=== PATIENT | female | born 1975 | race Caucasian/White ===

== ENCOUNTER 2018-07-15 11:04 | Emergency (ER) | payer OTHER ==
[2018-07-15 11:30] LABS: APPEARANCE,URINE Cloudy (CLEAR); BILIRUBIN,URINE Negative (NEGATIVE); COLOR,URINE Dark Yellow (YELLOW); GLUCOSE, URINE (UA) Negative (NEGATIVE); KETONES,URINE Trace mg/dL (NEGATIVE); LEUKOCYTE ESTERASE ,URINE Small (NEGATIVE); NITRATE,URINE Negative (NEGATIVE); OCCULT BLOOD,URINE Large (NEGATIVE); PROTEIN,URINE Trace (NEGATIVE)
[2018-07-15 11:34] LABS: HCG,QUAL RESULT NEGATIVE (NEGATIVE)
[2018-07-15] MEDS ORDERED: DEXAMETHASONE SOD PHOSPHATE 10MG/ML 1ML VIAL ONE (11:41)
[2018-07-15] MEDS ORDERED: KETOROLAC TROMETHAMINE 30MG/ML ONE (11:41)
[2018-07-15 11:45] LABS: BACTERIA,URINE Moderate /HPF (None Seen); RBC,URINE 0-1 /HPF (0-1); SQUAMOUS EPITHELIAL CELL,UR Few /HPF (0-2)
[2018-07-15] MEDS ORDERED: CYCLOBENZAPRINE HCL 10 MG TABLET ONE (11:45)
== END 2018-07-15 11:56 | disposition home or self-care (01) ==
LOC: EDH 11:04
DX: M54.40 Lumbago with sciatica, unspecified side (principal); G89.29 Other chronic pain; Z90.49 Acquired absence of other specified parts of digestive tract; Z98.890 Other specified postprocedural states; X58.XXXA Exposure to other specified factors, initial encounter; Y93.89 Activity, other specified; Y92.69 Other specified industrial and construction area as the place of occurrence of the external cause; Y99.8 Other external cause status
CPT/HCPCS: 81001; 81025; 96372 ×2; 99283; J1100; J1885

== ENCOUNTER 2024-08-08 12:19 | Emergency (ER) | payer SELFPAY ==
[~2024-08-08] VITALS: Ht 160 cm; Wt 87.1 kg
[2024-08-08 13:16] LABS: BASOPHILS # (AUTO) 0.04 K/uL (0.00-0.20); BASOPHILS % (AUTO) 0.3 % (0.0-5.0); HEMATOCRIT 43.8 % (36-48); IMMATURE GRANULOCYTE ABSOLUTE 0.07 K/uL (0-1); LYMPHOCYTES # (AUTO) 0.2 K/uL (1.0-4.8); LYMPHOCYTES % (AUTO) 1.5 % (21.0-51.0); MEAN CORPUSCULAR HEMOGLOBIN 19.7 pg (27.0-33.0); MEAN CORPUSCULAR HGB CONC 27.9 g/dL (32.0-36.0); MEAN CORPUSCULAR VOLUME 70.6 fL (79-99); MONOCYTES # (AUTO) 0.4 K/uL (0.1-1.0); MONOCYTES % (AUTO) 2.7 % (3.0-13.0); NEUTROPHILS # (AUTO) 12.9 K/uL (1.8-7.7); PLATELET COUNT (AUTO) 336 K/uL (130-400); WHITE BLOOD COUNT (AUTO) 13.6 K/uL (4.8-10.8)
[2024-08-08 13:22] LABS: CREATININE 0.5 mg/dL (0.5-1.0); POTASSIUM 3.7 mmol/L (3.5-5.1)
[2024-08-08 13:26] LABS: ALBUMIN 3.8 g/dL (3.5-5.0); BILIRUBIN,DIRECT 0.3 mg/dL (0.0-0.3); TOTAL PROTEIN, SERUM 7.9 g/dL (6.0-8.3)
--- NOTE | 2024-08-08 14:24 | ERN ---
General Chief Complaint: Nausea,Vomiting,Diarrhea Stated Complaint: VOMITING DIARRHEA Time Seen by MD: 12:20 Time Seen by Midlevel: 12:20 Source: patient History of Present Illness Initial Comments The patient is a 48-year-old female presenting to the emergency department with nausea, vomiting, and diarrhea that started two days ago. Associated symptoms i nclude diffuse abdominal pain. Patient states her symptoms started after eating at a local restaurant. Denies sick contacts. Denies any fever, chills, or any other symptoms at this time. Denies being . Allergies: Coded Allergies: No Known Drug Allergies (Unverified Allergy, Unknown, 08/08/24) Home Meds Active Scripts Famotidine (Pepcid) 20 Mg Tablet, 1 TAB PO BID for 30 Days, #60 TAB 0 Refills Prov:SHERRI MORAN 08/08/24 Ondansetron (Ondansetron Odt) 4 Mg Tab.rapdis, 4 MG PO BID for 7 Days, #14 TAB Prov:SHERRI MORAN 08/08/24 Past Medical History Past Medical History: No Pertinent History Past Surgical History: Appendectomy, ROS Dictation CONSTITUTIONAL: Negative except for HPI HEAD/FACE: Negative except for HPI EENT: Negative except for HPI RESPIRATORY: Negative except for HPI GASTROINTESTINAL/ABDOMINAL: Negative except for HPI GENITOURINARY: Negative except for HPI MUSCULOSKELETAL: Negative except for HPI INTEGUMENTARY: Negative except for HPI NEUROLOGICAL/PSYCH: Negative except for HPI HEMATOLOGIC/LYMPHATIC: Negative except for HPI All Systems Negative, Except as noted above. 13 point review of systems assessed and all negative except for above. Physical Exam Physical Exam Dictation Vital Signs reviewed General Appearance: Alert, oriented x 3, no acute distress, well developed, nourished. Head and Face: non-traumatic. Eyes: PERRL, pink conjunctivas, eyelid no trauma, anterior chamber with arcus senilis. Ears: Pinnas intact and no signs of trauma or erythema ear canals clear and no discharge TM no erythema Nose: No discharge, no bleeding. Oropharynx: Mouth normal, tongue pink, pharynx clear,no erythema, tonsils no exudates, no abscesses noted, mucous membrane moist Neck: Supple, non-tender, no thyromegaly, no masses, no JVD, no bruits Breast:Deferred Chest:No tenderness, no crepitus, no paradoxical movement, no retractions Lungs:Clear, well-ventilated, symmetric, no rales, no wheezing, no rhonchi, no stridor, good breath sounds bilaterally Heart: Regular rate, regular rhythm, no murmur, no gallops Vascular: no peripheral edema, Abdomen: Soft, positive bowel sounds, nondistended, no guarding, nontender, no rebound, no masses no hepatomegaly, no splenomegaly, no Damian's sign, no hernias. Rectal: Deferred Genital: Deferred Neurological: Normal speech, motor function intact, sensory function intact Musculoskeletal: Neck nontender, full range of motion, back nontender, full range of motion, Extremities: nontender, full range of motion Skin: Color pink, dry, no turgor, no rash, no lacerations, no abrasions, no contusions. Lymphatic: Deferred Results Laboratory and Microbiology Lab and Micro Result Laboratory Tests Test 08/08/24 12:48 White Blood Count 13.6 K/uL (4.8-10.8) H Red Blood Count 6.20 MIL/uL (4.00-5.50) H Hemoglobin 12.2 g/dL (12.0-16.0) Hematocrit 43.8 % (36-48) Mean Corpuscular Volume 70.6 fL (79-99) L Mean Corpuscular Hemoglobin 19.7 pg (27.0-33.0) L Mean Corpuscular Hemoglobin Concent 27.9 g/dL (32.0-36.0) L Red Cell Distribution Width 16.0 % (11.0-15.5) H Platelet Count 336 K/uL (130-400) Mean Platelet Volume 9.1 fL (7.5-10.5) Immature Granulocyte % (Auto) 0.5 % (0-1) Neutrophils (%) (Auto) 95.0 % (40.0-77.0) H Lymphocytes (%) (Auto) 1.5 % (21.0-51.0) L Monocytes (%) (Auto) 2.7 % (3.0-13.0) L Eosinophils (%) (Auto) 0.0 % (0.0-8.0) Basophils (%) (Auto) 0.3 % (0.0-5.0) Neutrophils # (Auto) 12.9 K/uL (1.8-7.7) H Lymphocytes # (Auto) 0.2 K/uL (1.0-4.8) L Monocytes # (Auto) 0.4 K/uL (0.1-1.0) Eosinophils # (Auto) 0.00 K/uL (0.00-0.70) Basophils # (Auto) 0.04 K/uL (0.00-0.20) Absolute Immature Granulocyte (auto 0.07 K/uL (0-1) Nucleated Red Blood Cells 0.0 % (0.0-0.19) White Cell Morphology Comment See comments Red Blood Cell Morphology See comments Sodium Level 136 mmol/L (136-145) Potassium Level 3.7 mmol/L (3.5-5.1) Chloride Level 95 mmol/L (101-111) L Carbon Dioxide Level 22 mmol/L (21-32) Blood Urea Nitrogen 11 mg/dL (7-18) Creatinine 0.5 mg/dL (0.5-1.0) Glomerular Filtration Rate Calc 116 mL/min (>90) Random Glucose 292 mg/dL (70-105) H Total Calcium 8.7 mg/dL (8.5-10.1) Total Bilirubin 1.0 mg/dL (0.2-1.0) Direct Bilirubin 0.3 mg/dL (0.0-0.3) Aspartate Amino Transf (AST/SGOT) 85 U/L (10-37) H Alanine Aminotransferase (ALT/SGPT) 89 U/L (12-78) H Alkaline Phosphatase 149 U/L (50-136) H Total Protein 7.9 g/dL (6.0-8.3) Albumin 3.8 g/dL (3.5-5.0) Lipase 35 U/L (16-77) Serum Test, Qualitative NEGATIVE (NEGATIVE) Labs Reviewed?: Yes MDM MDM: The patient is a 48-year-old female presenting to the emergency department with nausea, vomiting, and diarrhea that started two days ago. Associated symptoms include diffuse abdominal pain. Patient states her symptoms started after eating at a local restaurant. Denies sick contacts. Denies any fever, chills, or any other symptoms at this time. Denies being . Initial vital signs reveal a temperature of 98.1. Heart rate of 109 beats per minute. Blood pressure stable at 140 5/78. O2 saturation is 98% on room air. On physical examination the patient appears to be in mild distress secondary to abdominal pain. She was some diffuse abdominal tenderness with no rebound or guarding. Given her clinical presentation and abdominal workup was obtained. CBC shows leukocytosis with a left shift. Hemoglobin is stable at 12.2. No thrombocytopenia. Chemistries reveal elevated liver function tests. Lipase is normal at 35. Repeat examination patient with continued abdominal pain. A CT scan of the abdomen/pelvis with contrast was ordered. CT scan reveals mild small bowel dilation with fluid-filled which may be related to enterocolitis. No evidence of pancreatitis or renal stones. Symptoms are most likely related to something that she ate. Patient was given 1 L of IV fluids Zofran and Pepcid in the ER. She will be discharged home with close return precautions and a prescription for Zofran and Pepcid. Differential diagnosis: Gastroenteritis, enterocolitis, dehydration There are no social concerns with this patient. Prescription drug management Prescriptions will include: Zofran and Pepcid Medical management and examination interpretation discussions were had by me with other qualified healthcare professionals as indicated for the patient's care. ED Course Orders Procedure Category Date Status Time Cbc With Differential LAB 08/08/24 Complete 12:33 Basic Metabolic Panel LAB 08/08/24 Complete 12:33 Hepatic Function Panel LAB 08/08/24 Complete 12:33 Lipase LAB 08/08/24 Complete 12:33 Testing, LAB 08/08/24 Complete Serum Hcg 12:33 Urinalysis Profile LAB 08/08/24 Logged 12:33 0.9%Nacl 1000ml (Ns PHA 08/08/24 Complete 1000ml) 13:00 Ct Abdomen/Pelvis CT 08/08/24 Resulted W/Contrast 13:37 Ondansetron 4mg Inj PHA 08/08/24 Complete (Zofran 4mg Inj) 14:00 Famotidine 20mg Vial PHA 08/08/24 Complete (Pepcid 20mg Vial) 14:00 Iohexol (Omnipaque) PHA 08/08/24 Complete 15:19 Current Medications Medications (Trade) Dose Ordered Sig/Storm Route PRN Reason Start Time Stop Time Status Last Admin Dose Admin Famotidine (Pepcid 20mg Vial) 20 mg ONCE ONCE IV 08/08/24 14:00 08/08/24 14:01 DC 08/08/24 14:54 Iohexol (Omnipaque) 75 ml STK-MED ONCE IV 08/08/24 15:19 08/08/24 15:20 DC Ondansetron HCl (zoFRAN 4MG INJ) 4 mg ONCE ONCE IVP 08/08/24 14:00 08/08/24 14:01 DC 08/08/24 14:54 Sodium Chloride 1,000 ml @ 0 mls/hr ONCE ONCE IV 08/08/24 13:00 08/08/24 13:01 DC 08/08/24 14:55 Vital Signs Date Time Temp Pulse Resp B/P (MAP) Pulse Ox O2 Delivery O2 Flow Rate FiO2 08/08/24 17:12 98.2 102 18 122/68 100 Room Air* 0 21 08/08/24 16:00 98.1 110 18 138/72 Room Air* 0 21 08/08/24 15:05 109 18 115/76 100 Room Air* 0 21 08/08/24 14:00 98.1 115 20 129/81 99 Room Air* 0 21 08/08/24 13:00 98.2 118 20 129/81 99 Room Air* 0 21 08/08/24 12:31 98.1 109 19 145/78 98 Room Air DX & DISP Disposition: Discharge Departure Impression: Primary Impression: Gastroenteritis Condition: Stable Scripts Famotidine (Pepcid) 20 Mg Tablet 1 TAB PO BID for 30 Days, #60 TAB 0 Refills Prov: SHERRI MORAN 08/08/24 Ondansetron (Ondansetron Odt) 4 Mg Tab.rapdis 4 MG PO BID for 7 Days, #14 TAB Prov: SHERRI MORAN 08/08/24 Additional Instructions: Your blood work today is stable. Your CT scan shows findings consistent with gastroenteritis. Your symptoms are most likely related to something you ate. I have given you a prescription for Zofran and Pepcid which should help improve your symptoms over the next couple of days. Please follow up with your primary care doctor in 2-3 days for repeat evaluation. Return to the ER for any new or worsening symptoms. Referrals: SELF,REFERRAL (PCP) Time of Disposition: 15:58 I have reviewed the case, and I agree with, Diagnosis and Plan I performed the substantive portion of the visit. I have reviewed and personally made and approve the management plan that is documented in the note by myself or the ABILIO. I acknowledge for responsibility for the patient's management plan. SHERRI MORAN Aug 08, 2024 14:24 TRUPTI LAZCANO DO Aug 08, 2024 17:31
[2024-08-08] MEDS: ondanSETRON 4MG INJ IVP ONE (14:54)
[2024-08-08] MEDS: FAMOTIDINE 20MG VIAL IV ONE (14:54)
[2024-08-08] MEDS: 0.9%NACL 1000ML 1,000 ML IV ONE (14:55)
[2024-08-08] MEDS ORDERED: IOHEXOL-350 75 ML VIAL IV ONE (15:19)
--- NOTE | 2024-08-08 15:48 | HMCIMG ---
CT ABDOMEN/PELVIS W/CONTRAST HISTORY: Diffuse abdominal pain COMPARISON: None TECHNIQUE: Multiple sequential axial images of the abdomen and pelvis were obtained from the dome of the diaphragm through symphysis pubis. Patient was not given contrast through intravenous route. Oral contrast was not given. FINDINGS: No pleural effusion is seen bilaterally. There is no evidence of parenchymal disease or pulmonary nodule of the visualized lower lungs. Degenerative changes of the thoracolumbar spine are present. The heart is not enlarged. Liver measures 16.2 cm. Spleen measure 14 cm. Post cholecystectomy changes are seen. A small hiatal hernia is seen. Mild small bowel dilatation is similar fluid-filled may be related to enterocolitis. The liver, spleen, adrenal glands and pancreas are unremarkable. There is no evidence of hydronephrosis bilaterally. No evidence of renal stone is seen. Fecal material is seen in the colon. There are normal size retroperitoneal and mesenteric lymph nodes. No ascites is seen. Appendix is not well visualized. There is left ovarian cyst measuring 3.7 cm. Pelvic sidewalls are symmetric bilaterally. Bladder is well distended without wall thickening. IMPRESSION: 1. Mild small bowel dilatation is seen with fluid-filled may be related to enterocolitis. CT was performed with one or more following dose reduction techniques: automated exposure control, adjustment of the mA and kv according to patient's size, or use of a iterative reconstruction technique.
[2024-08-08] MEDS ORDERED: FAMO-136 PO (15:59)
[2024-08-08] MEDS ORDERED: ONDA-243 PO (15:59)
[2024-08-08 17:12] VITALS: BP 122/68; PULSE 102; RESP 18; TEMP 98.2; O2SAT 100
--- NOTE | 2024-08-08 17:30 | NUR ---
PATIENT STATES SHE "FEELS BETTER" DECREASED PAIN, NO NAUSEA, NO VOMITING, NO EPISODES OF DIARRHEA SINCE SHE HAS BEEN HERE IN THE HOSPITAL
== END 2024-08-08 17:46 | disposition home or self-care (01) ==
LOC: EDH 12:19
DX: K52.9 Noninfective gastroenteritis and colitis, unspecified (principal); R11.2 Nausea with vomiting, unspecified; Z90.49 Acquired absence of other specified parts of digestive tract; Z98.890 Other specified postprocedural states
CPT/HCPCS: 99285; 74177; 96374; 96361; 96375; 80076; 80048; 84703; 83690; 85025; 36415; J3490; J7030; J2405; Q9967